=== PATIENT | male | born 1990 ===

== ENCOUNTER 2017-11-20 22:08 | Emergency (ER) | payer OTHER ==
[2017-11-20 22:54] VITALS: BP 128/70; PULSE 60; RESP 18; TEMP 99.1; O2SAT 99
--- NOTE | 2017-11-21 01:55 | ED PDOC ---
HPI: General Adult Time Seen by Provider: 11/21/17 00:07 Chief Complaint (Nursing): Abnormal Skin Integrity Chief Complaint (Provider): left axillary abscess Additional History Per: Patient Additional Complaint(s): This is 27 y/o male with no PMH comes to the ED c/o 1 week history of left axillary pain, erythema and swelling. This started after shaving his armpit, patient admits appearing pimple first which got worse after manipulation. patient denies any fever, chills, SOB, dizziness, chest pain, urinary symptoms or n/v. Past Medical History Vital Signs: Last Vital Signs Temp 99.1 F 11/20/17 22:51 Pulse 60 11/20/17 22:51 Resp 18 11/20/17 22:51 BP 128/70 11/20/17 22:51 Pulse Ox 99 11/21/17 03:56 - Medical History PMH: Denies: HTN - Surgical History Surgical History: No Surg Hx - Family History Family History: States: No Known Family Hx - Living Arrangements Living Arrangements: With Family - Social History Current smoker - smoking cessation education provided: No Ex-Smoker (has not smoked in the last 12 months): No Alcohol: Social Drugs: Denies - Home Medications Home Medications: Ambulatory Orders Medication Instructions Recorded Cephalexin [Keflex] 500 mg PO QID #28 capsule 11/21/17 Sulfamethoxazole/Trimethoprim 1 tab PO BID #14 tab 11/21/17 [Bactrim DS 800 mg-160 mg] - Allergies Allergies/Adverse Reactions: Allergies Allergy/AdvReac Type Severity Reaction Status Date / Time No Known Allergies Allergy Verified 11/20/17 22:51 Review of Systems Constitutional: Negative for: Fever, Chills, Sweats Eyes: Negative for: Pain, Conjunctivae Inflammation ENT: Negative for: Ear Pain, Nose Pain, Mouth Pain Cardiovascular: Negative for: Chest Pain Respiratory: Negative for: Cough, Shortness of Breath Gastrointestinal: Negative for: Nausea, Vomiting, Abdominal Pain Genitourinary Male: Negative for: Dysuria Musculoskeletal: Negative for: Neck Pain Neurological: Negative for: Weakness, Numbness Physical Exam - Reviewed Nursing Documentation Reviewed: Yes Vital Signs Reviewed: Yes - Physical Exam Appears: Positive for: No Acute Distress Head Exam: Positive for: ATRAUMATIC, NORMAL INSPECTION, NORMOCEPHALIC Skin: Positive for: Warm (tender, erythema, 2x2cm abscess with migrating demarcated erythema from armpit to lateral forearm ) Eye Exam: Positive for: Normal appearance ENT: Positive for: Normal ENT Inspection Neck: Positive for: Normal Cardiovascular/Chest: Positive for: Regular Rate, Rhythm, Chest Non Tender Respiratory: Positive for: Normal Breath Sounds Gastrointestinal/Abdominal: Positive for: Normal Exam, Bowel Sounds, Soft. Negative for: Tenderness Back: Positive for: Normal Inspection Extremity: Positive for: Normal ROM Neurologic/Psych: Positive for: Alert, blower blast furnace II-XII, Oriented - ECG O2 Sat by Pulse Oximetry: 99 - Progress ED Course And Treament: 27 y/o male with Axillary abscess - Morphine 4mg IV - Unasyn 3gm - I&D Case discussed with Dr. Dexter I&D was done: Lots of pus drained out Medical Decision Making Medical Decision Making: Axillary abscess with cellulitis Procedures - Incision and Drainage Site: Left axillary abscess Blade Size: 11 I & D Procedure: betadine prep, sterile drapes applied, sterile dressing applied Progress: Lots of pus drained from the sit, patient feels less pressure Disposition - Clinical Impression Clinical Impression: Cellulitis - Disposition Referrals: [facility] [Outside] [facility] [Outside] Disposition: Routine/Home Disposition Time: 05:15 Condition: IMPROVED Additional Instructions: follow up with our primary doctor in 1-2 day return to the ED with any worsening o rconcerning symptoms Prescriptions: Cephalexin [Keflex] 500 mg PO QID #28 capsule Sulfamethoxazole/Trimethoprim [Bactrim DS 800 mg-160 mg] 1 tab PO BID #14 tab Instructions: Cellulitis (ED) Forms: [employer] (Frisian)
[2017-11-21] MEDS ORDERED: Lidocaine 1% Inj (20ml) IJ ONE (02:50)
[2017-11-21] MEDS ORDERED: Lidocaine 2% Inj (20ml) ONE (02:57)
[2017-11-21] MEDS ORDERED: Povidone Iodine Oint 10% Foilpak UD ONE (03:02)
[2017-11-21] MEDS ORDERED: Morphine 4 MG/ML VIAL IVP ONE (03:08)
== END 2017-11-21 05:15 | disposition home or self-care (01) ==
LOC: H.ER 22:08
DX: L02.412 Cutaneous abscess of left axilla (principal)
CPT/HCPCS: 10060; 96374; 99283; J0295; J2270

== ENCOUNTER 2017-11-22 14:30 | Emergency (ER) | payer OTHER ==
[2017-11-22 15:31] VITALS: BP 123/72; PULSE 60; RESP 16; TEMP 97.5; O2SAT 99
== END 2017-11-22 16:48 | disposition left against medical advice (07) ==
LOC: H.ER 14:30
DX: Z02.89 Encounter for other administrative examinations (principal)

== ENCOUNTER 2017-11-23 04:27 | Observation (INO) | payer OTHER ==
[2017-11-23] MEDS ORDERED: Clindamycin 600mg/50ml NS 600 MG/50 ML BAG IVPB STA (05:15)
--- NOTE | 2017-11-23 05:19 | ED PDOC ---
HPI: Wound Care - HPI Time Seen by Provider: 11/23/17 04:37 Chief Complaint (Nursing): Wound Check Chief Complaint (Provider): wound check History Per: Patient History Of Present Illness: 27 y/o male presents for wound check to left axilla abscess. Patient states he had incision and drainage procedure 48 hours ago here, was given IV antibiotic dose and discharged with Bactrim and Keflex which he has been compliant with. Patient states he followed up with his primary doctor yesterday and was advised to return to ED for IV antibiotics. Patient denies fever, worsening pain/ swelling to site. Past Medical History Reviewed: Historical Data, Nursing Documentation, Vital Signs Vital Signs: Last Vital Signs Temp 97.3 F L 11/23/17 04:40 Pulse 55 L 11/23/17 04:40 Resp 17 11/23/17 04:40 BP 124/77 11/23/17 04:40 Pulse Ox 97 11/23/17 04:40 - Medical History PMH: No Chronic Diseases Denies: HTN - Surgical History Surgical History: No Surg Hx - Family History Family History: States: No Known Family Hx - Home Medications Home Medications: Ambulatory Orders Medication Instructions Recorded Cephalexin [Keflex] 500 mg PO QID #28 capsule 11/21/17 Sulfamethoxazole/Trimethoprim 1 tab PO BID #14 tab 11/21/17 [Bactrim DS 800 mg-160 mg] - Allergies Allergies/Adverse Reactions: Allergies Allergy/AdvReac Type Severity Reaction Status Date / Time No Known Allergies Allergy Verified 11/20/17 22:51 Review of Systems ROS Statement: Except As Marked, All Systems Reviewed And Found Negative Skin: Positive for: Other (left axilla abscess) Physical Exam - Reviewed Nursing Documentation Reviewed: Yes Vital Signs Reviewed: Yes - Physical Exam Appears: Positive for: Well, Non-toxic, No Acute Distress Head Exam: Positive for: ATRAUMATIC, NORMAL INSPECTION, NORMOCEPHALIC Skin: Positive for: Rash (left axilla abscess with central incision site actively drainaining. Moderate surrounding firmness, erythema extending to distal upper arm. ) Cardiovascular/Chest: Positive for: Regular Rate, Rhythm Respiratory: Positive for: Normal Breath Sounds Pulses-Radial (L): 2+ Pulses-Radial (R): 2+ Extremity: Positive for: Normal ROM (pain with abduction left upper extremity due to pain at axilla site), Capillary Refill Neurologic/Psych: Positive for: Alert, Oriented. Negative for: Motor/Sensory Deficits - ECG O2 Sat by Pulse Oximetry: 97 - Progress ED Course And Treament: labs, wound culture, IV clindamycin, IV zosyn, IV morphine Large amount of purulent drainage expressed from incision site. Site packed, bandaged. Case discussed with Dr. Merino, patient's primary physician, for admission for cellulitis, axilla abscess with failed outpatient treatment Disposition - Clinical Impression Clinical Impression: Cellulitis, Abscess, axilla - Patient ED Disposition Is Patient to be Admitted: Yes - Disposition Referrals: Kulwant Merino MD [Primary Care Provider] - Disposition Time: 06:11 Condition: FAIR
[2017-11-23] MEDS ORDERED: Piperacillin/Tazobact 3.375 GM in Sodium Chloride 0.9% 100 ML IV ONE (05:29)
[2017-11-23] MEDS ORDERED: Piperacillin/Tazobact 3.375 gm Inj IVPB ONE (06:09)
[2017-11-23 06:32] LABS: BASO # 0.1 K/uL (0.0-0.2); EOS # 0.4 K/uL (0.0-0.7); EOS % 4.5 % (0.0-4.0); HEMOGLOBIN 13.5 g/dL (12.0-18.0); LYMPH # 2.1 K/uL (1.0-4.3); LYMPH % 24.6 % (20.0-40.0); MEAN PLATELET VOLUME 9.8 fl (7.2-11.7); MONO # 0.8 K/uL (0.0-0.8); MONO % 8.8 % (0.0-10.0); NEUT # 5.3 K/uL (1.8-7.0); NEUT % 61.1 % (50.0-75.0); NRBC % 0.1 % (0.0-0.0); RBC 4.37 Mil/uL (4.40-5.90); RED CELL DISTRIBUTION WIDTH 12.8 % (11.5-14.5); WHITE BLOOD COUNT 8.7 K/uL (4.8-10.8)
[2017-11-23 07:10] LABS: ALB/GLOB RATIO 1.1 (1.0-2.1); ALBUMIN 3.7 g/dL (3.5-5.0); ALT/SGPT 46 U/L (21-72); AST/SGOT 64 U/L (17-59); BLOOD UREA NITROGEN 12 mg/dl (9-20); CALCIUM 9.4 mg/dL (8.4-10.2); GFR AFRICAN-AMERICAN > 60; GFR NON-AFRICAN AMERICAN > 60
--- NOTE | 2017-11-23 11:47 | CP.PCM.PN ---
Subjective - Date & Time of Evaluation Date of Evaluation: 11/23/17 Time of Evaluation: 11:45 - Subjective Subjective: General Surgery: Dr Pike Pt is a 27M with no significant PMH. Recently had I&D of left axillary abscess in ED on tuesday, sent home on Keflex and Bactrim which he has been compliant with. Pt was sent back to ED by primary doctor yesterday for further evaluation of wound. Pt states pain has significantly improved. Surrounding erythema has resolved and there has been minimal drainage since admission. Abscess was repacked in the ER. Denies any fevers, chills, nausea, vomiting, sob or chest pain. 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 infected hair follicle. PMH: none PSH: none Fam Hx: non-contributory Objective - Vital Signs/Intake and Output Vital Signs (last 24 hours): Temp Pulse Resp BP Pulse Ox 97.3 F L 64 18 117/74 98 11/23/17 08:17 11/23/17 08:17 11/23/17 09:16 11/23/17 08:17 11/23/17 08:17 - Medications Medications: Current Medications Clindamycin Phosphate (Cleocin In Normal Saline) 600 mg in 50 mls @ 50 mls/hr IVPB Q8 ZAFAR PRN Reason: Protocol Saccharomyces Boulardii (Florastor) 250 mg PO BID ZAFAR - Labs Labs: 11/23/17 06:00 11/23/17 06:00 - Constitutional Appears: Non-toxic, No Acute Distress - Head Exam Head Exam: NORMAL INSPECTION - Eye Exam Eye Exam: Normal appearance - ENT Exam ENT Exam: Mucous Membranes Moist - Cardiovascular Exam Cardiovascular Exam: REGULAR RHYTHM - GI/Abdominal Exam GI & Abdominal Exam: Soft. absent: Guarding, Tenderness - Extremities Exam Additional comments: 1x1cm abscess s/p I&D with packing present, minimal surrounding induration, no evidence of continued drainage. - Psychiatric Exam Psychiatric exam: Normal Mood - Skin Skin Exam: Dry, Intact, Warm Assessment and Plan - Assessment and Plan (Free Text) Assessment: 27M w/ left axillary abscess s/p I&D Plan: s/p I&D - appears to have been drained adequately pt requesting discharge instructed pt on proper "post-op" care no further intervention is needed no leukocytosis and afebrile - can likely be d/c and resume PO abx pt can follow up in wound care clinic on fridays at [facility] 1st floor can continue warm compresses, shower normally, remove packing tomorrow 11/24/17 d/w Dr Glendy Martinez, PGY3
[2017-11-23] MEDS: Clindamycin 600mg/50ml NS 600 MG/50 ML BAG IVPB SCH ×2 (12:32→16:18)
[2017-11-23] MEDS ORDERED: Clindamycin in NS 300 MG/50 ML BAG IVPB SCH (13:00)
[2017-11-23] MEDS: Saccharomyces Boulardi 250 mg Cap PO SCH (16:18)
[2017-11-23 23:47] VITALS: RESP 20
--- NOTE | 2017-11-23 23:59 | HP ---
HISTORY OF PRESENT ILLNESS: The patient is a 27-year-old male with no significant past medical history, presented to the office on the day of admission with symptoms of swelling of the left upper extremity. The patient was status post drainage of left axillary abscess. The patient was resent to Emergency Room where he was evaluated and admitted for further management. Other review of system is negative. ALLERGIES: NO KNOWN ALLERGIES. HOME MEDICATIONS: Bactrim double strength 1 tablet twice a day and Keflex 500 mg four times a day. SOCIAL HISTORY: No history of smoking, EtOH or substance abuse. FAMILY HISTORY: Noncontributory. PHYSICAL EXAMINATION GENERAL: The patient is in bed comfortable, not in any cardiopulmonary distress. VITAL SIGNS: Blood pressure 117/74, temperature 97.5, respiratory rate 18 and pulse 64. HEENT: Pupils equal, reactive to light. Normal appearing mucosa of the conjunctivae, oropharynx and nasal membrane mucosa. NECK: Supple. No JVD. No carotid bruit. No lymph node. No thyromegaly. CHEST AND LUNGS: Bilateral symmetrical expansion. Good air exchange. No rales, no rhonchi. CARDIOVASCULAR: PMI not localized. S1 and S2. No additional sounds. ABDOMEN: Normoactive bowel sounds. No tenderness. No organomegaly. No masses. EXTREMITIES: The patient has a drained abscess of the left axilla with swelling and tenderness of the left arm. ASSESSMENT: Left axillary abscess status post incision and drainage with cellulitis of the left upper arm. PLAN: Continue current IV antibiotics. Surgical consult and follow the recommendations. Kulwant Merino MD
[2017-11-24] MEDS: Clindamycin 600 MG in Sodium Chloride 0.9% 100 ML IVPB SCH ×2 (00:45→09:32)
--- NOTE | 2017-11-24 07:32 | CP.PCM.PN ---
Subjective - Date & Time of Evaluation Date of Evaluation: 11/24/17 Time of Evaluation: 07:31 - Subjective Subjective: General Surgery Progress Note - Dr Pike 27 y/o male seen at bedside this AM for left axillary abscess. Reports mild pain overnight which was well controlled. States he is feeling fine today and slept well. Says the armpit is still very tender. Denies F/C/N/V/CP/SOB. Objective - Vital Signs/Intake and Output Vital Signs (last 24 hours): Temp Pulse Resp BP Pulse Ox 97.9 F 52 L 20 123/72 99 11/23/17 23:46 11/23/17 23:46 11/23/17 23:46 11/23/17 23:46 11/23/17 23:46 - Medications Medications: Current Medications Clindamycin Phosphate 600 mg/ (Sodium Chloride) 104 mls @ 104 mls/hr IVPB Q8 ZAFAR PRN Reason: Protocol Last Admin: 11/24/17 00:45 Dose: 104 mls/hr Saccharomyces Boulardii (Florastor) 250 mg PO BID ZAFAR Last Admin: 11/23/17 16:18 Dose: 250 mg - Labs Labs: 11/23/17 06:00 11/23/17 06:00 - Constitutional Appears: Well, Non-toxic, No Acute Distress - Extremities Exam Additional comments: LUE exam: 1x1cm axillary abscess s/p I&D with packing present, minimal surrounding induration -s/p packing removal, mild purulence noted to abscess site -minimal hattie wound erythema - Neurological Exam Neurological Exam: Alert, Awake, Oriented x3 - Psychiatric Exam Psychiatric exam: Normal Affect, Normal Mood - Skin Skin Exam: Warm Assessment and Plan - Assessment and Plan (Free Text) Assessment: 27M w/ left axillary abscess s/p I&D Plan: -s/p I&D - appears to have been drained adequately -packing removed today, with some residual purulence noted superficially to abscess site -cont IV abx per ID -pt should be d/c on PO abx -continue warm compresses -continue pain mgt -no further surgical intervention planned -d/w Dr Pike
[2017-11-24 07:54] VITALS: BP 111/62; PULSE 68; TEMP 98.3; O2SAT 98
[2017-11-24] MEDS: Saccharomyces Boulardi 250 mg Cap PO SCH (09:32)
[2017-11-24 10:03] LABS: HEMOGLOBIN 14.8 g/dL (12.0-18.0); MEAN CELL VOLUME 92.7 fl (80.0-94.0); MEAN CORPUSCULAR HEMOGLOBIN 31.1 pg (27.0-31.0); MEAN CORPUSCULAR HGB CONC 33.6 g/dL (33.0-37.0); RBC 4.77 Mil/uL (4.40-5.90); RED CELL DISTRIBUTION WIDTH 13.1 % (11.5-14.5); WHITE BLOOD COUNT 7.4 K/uL (4.8-10.8)
[2017-11-24] MEDS ORDERED: Clindamycin 600mg/50ml NS 600 MG/50 ML BAG IVPB SCH (17:00)
== END 2017-11-24 15:42 | disposition home or self-care (01) ==
LOC: H.ER 04:27 → INTOOBSV 05:28 → H.ERHOLD 05:28 → H.MEDSURG1 08:09
PROVIDERS: ADMIT Internal Medicine; ATTEND Internal Medicine
DX: L02.412 Cutaneous abscess of left axilla (principal); A49.02 Methicillin resistant Staphylococcus aureus infection, unspecified site
CPT/HCPCS: 36415; 80053; 83036; 83605; 85025; 85027; 87040; 87070; 87181; 96360; 99282; G0378; J2270; J2543

== ENCOUNTER 2018-03-05 12:02 | Emergency (ER) | payer OTHER ==
[2018-03-05 12:12] VITALS: BMI 25.8
[2018-03-05 12:13] VITALS: BP 131/79; PULSE 63; RESP 20; TEMP 97.9; O2SAT 99
[2018-03-05] MEDS ORDERED: Tdap Vaccine 0.5 ml Vial (10-64 yrs) IM ONE ×2 (12:27→12:35)
--- NOTE | 2018-03-05 12:36 | ED PDOC ---
HPI: Wound Care - HPI Time Seen by Provider: 03/05/18 12:19 Chief Complaint (Nursing): Abnormal Skin Integrity Chief Complaint (Provider): facial laceration History Per: Patient Exam Limitations: no limitations Onset/Duration Of Symptoms: Days (last night 3am) Current Symptoms Are (Timing): Still Present Additional Complaint(s): 27 year old male presents to the emergency department complaining of a laceration to his forehead. Patient states that he was out drinking last night in [place], and around 3:00am, he slipped and hit his head on a brick outside, but denies any loss of consciousness. He notes he is unsure of his last tetanus shot. Patient has mild pain to affected area. He denies any vision changes, headache or dizziness. No medical attention was sought at 3 am at time of injury. PMD: Kulwant Merino Past Medical History Reviewed: Historical Data, Nursing Documentation, Vital Signs Vital Signs: Last Vital Signs Temp 97.9 F 03/05/18 12:12 Pulse 63 03/05/18 12:12 Resp 20 03/05/18 12:12 BP 131/79 03/05/18 12:12 Pulse Ox 99 03/05/18 12:12 - Medical History PMH: No Chronic Diseases - Surgical History Surgical History: No Surg Hx - Family History Family History: States: No Known Family Hx - Living Arrangements Living Arrangements: With Friends/Others - Social History Current smoker - smoking cessation education provided: No Alcohol: Social Drugs: Denies - Immunization History Hx Tetanus Toxoid Vaccination: No (not sure of last booster) - Home Medications Home Medications: Ambulatory Orders Medication Instructions Recorded Clindamycin [Cleocin] 300 mg PO TID #21 cap 11/24/17 Saccharomyces Boulardi [Florastor] 250 mg PO BID #20 cap 11/24/17 - Allergies Allergies/Adverse Reactions: Allergies Allergy/AdvReac Type Severity Reaction Status Date / Time No Known Allergies Allergy Verified 03/05/18 12:10 Review of Systems ROS Statement: Except As Marked, All Systems Reviewed And Found Negative () Skin: Positive for: Other (laceration to forehead) Neurological: Positive for: Other (denies LOC). Negative for: Dizziness Physical Exam - Reviewed Nursing Documentation Reviewed: Yes Vital Signs Reviewed: Yes - Physical Exam Appears: Positive for: Well, Non-toxic, No Acute Distress Head Exam: Positive for: NORMAL INSPECTION, NORMOCEPHALIC. Negative for: ATRAUMATIC (2 cm superficial laceration to mid forehead, no active bleeding, N/ V intact) Skin: Positive for: Normal Color. Negative for: Rash Eye Exam: Positive for: Normal appearance Neurologic/Psych: Positive for: Alert, Oriented (x3), Gait (steady). Negative for: Aphasia, Facial Droop - ECG O2 Sat by Pulse Oximetry: 99 (RA) Pulse Ox Interpretation: Normal Medical Decision Making Medical Decision Making: Time: 12:27 Initial Impression: 27 year old male with head laceration Initial Plan: --Tetanus Booster --Dermabond for laceration repair Procedure note: Wound was irrigated copiously with normal saline and Betadine, Dermabond was used to approximate wound edges, good wound approximation was achieved, closure was reinforced by steri-strips. Procedure was tolerated well with no complications. Patient was given detailed wound care instructions. Scribe Attestation: Documented by Muna Richard, acting as a scribe for Gege Gilliam PA-C. Provider Scribe Attestation: All medical record entries made by the Scribe were at my direction and personally dictated by me. I have reviewed the chart and agree that the record accurately reflects my personal performance of the history, physical exam, medical decision making, and the department course for this patient. I have also personally directed, reviewed, and agree with the discharge instructions and disposition. Disposition - Clinical Impression Clinical Impression: Facial laceration, Requires a booster tetanus - Patient ED Disposition Is Patient to be Admitted: No Counseled Patient/Family Regarding: Diagnosis, Need For Followup - Disposition Referrals: Kulwant Merino MD [Family Provider] - Disposition: Routine/Home Disposition Time: 13:02 Condition: STABLE Additional Instructions: KEEP WOUND CLEAN AND DRY. ALLOW STERI-STRIPS AND GLUE TO FLAKE OFF ON THEIR OWN, THIS WILL TAKE ABOUT 1-2 WEEKS. DO NOT GET AREA WET. ADVIL OR TYLENOL NEEDED FOR PAIN. TO AVOID SCAR FORMATION AVOID SUN EXPOSURE, WEAR SUNBLOCK WHEN OUTSIDE. FOLLOW UP NEEDED WITH YOUR PRIMARY CARE DOCTOR. Instructions: Laceration Repair With Glue (DC), Diphtheria and Tetanus Toxoids , and Acellular Pertussis Vaccine Forms: [employer] (Romansh)
== END 2018-03-05 13:35 | disposition home or self-care (01) ==
LOC: H.ER 12:02
DX: S01.81XA Laceration without foreign body of other part of head, initial encounter (principal); W01.0XXA Fall on same level from slipping, tripping and stumbling without subsequent striking against object, initial encounter; Y92.89 Other specified places as the place of occurrence of the external cause